=== PATIENT | female | born 1985 | race African-American/Black ===

== ENCOUNTER 2019-09-29 18:18 | Emergency (ER) | payer BC, OTHER ==
[~2019-09-29] VITALS: Ht 157.5 cm; Wt 72.1 kg
--- NOTE | 2019-09-29 18:41 | NUR ---
BIB SELF 34 YEAR OLD FEMALE C/O FEVER, COUGH WITH CONGESTION X 1 WEEK WITH DIFFICULTY BREATHING WENT TO URGENT CARE LAST WED, SYMPTOMS WITH NO IMPROVEMENT. ALERT AND ORIENTED X4, SKIN INTACT. CURRENTLY BREATHING EVEN AND UNLABORED WITH NO DISTRESS NOTED. WAITING TO BE SEEN BY
[2019-09-29] MEDS ORDERED: predniSONE 20 MG TABLET ONE (19:40)
[2019-09-29] MEDS ORDERED: IPRATROPIUM NEB FS 0.5 MG/2.5 ML AMPUL.NEB NEB ONE (20:00)
[2019-09-29] MEDS ORDERED: ALBUTEROL FS 2.5 MG/3 ML VIAL.NEB NEB ONE (20:00)
[2019-09-29] MEDS ORDERED: predniSONE 20 MG TABLET PO ONE (20:00)
[2019-09-29] MEDS ORDERED: IPRATROPIUM NEB FS 0.5 MG/2.5 ML AMPUL.NEB ONE (20:23)
[2019-09-29] MEDS ORDERED: ALBUTEROL FS 2.5 MG/3 ML VIAL.NEB ONE (20:23)
--- NOTE | 2019-09-29 21:00 | NUR ---
BREATHING TREATMENT DONE, REASSESSED BY RT. ALL LUNG SANCHEZ CLEAR UPON AUSCULTATION, PATIENT CLAIMED STILL HAVING SHORTNESS OF BREATH. MD NOTIFIED.
--- NOTE | 2019-09-29 21:22 | NUR ---
DISCHARGE INSTRUCTIONS PROVIDED TO PATIENT.
[2019-09-29 21:24] VITALS: BP 105/59
== END 2019-09-29 21:24 | disposition home or self-care (01) ==
LOC: ER 18:29
DX: J98.01 Acute bronchospasm (principal); J06.9 Acute upper respiratory infection, unspecified; Z88.6 Allergy status to analgesic agent
CPT/HCPCS: 94640; 99283; J7512